=== PATIENT | male | born 1985 | race Caucasian/White ===

== ENCOUNTER → 2017-10-29 08:06 | Outpatient (CLI) | payer OTHER, SELFPAY ==
--- NOTE | 2017-10-29 | DI.MRI.S_ITS ---
PROCEDURE: MR SHOULDER RT W CON INDICATIONS: PAIN IN RIGHT SHOULDER TECHNIQUE: After the administration of 12 mL of dilute intra-articular Gadolinium contrast, oblique coronal T1 and T2 spin echo with fat saturation, oblique sagittal T1 spin echo with and without fat saturation, oblique sagittal T2 fast spin echo with fat saturation, axial T1 spin echo with fat saturation through the shoulder. COMPARISON: None. FINDINGS: Image quality: Excellent. Rotator cuff: Partial-thickness articular sided tear of the supraspinatus tendon involving the critical zone and footprint which appears high-grade, greater than 50% of tendon thickness. This measures approximately 6 cm in AP dimension on sagittal image 6 series 8. No leakage of injected gadolinium contrast material into the subacromial/subdeltoid bursa to suggest full-thickness defect. The infraspinatus and teres minor tendons appear intact. The subscapularis tendon appears intact. No atrophy of the rotator cuff musculature. Bones and bursae: No bone marrow contusions or fractures. No acromioclavicular joint degeneration. The acromion demonstrates conventional anatomy, without an os acromiale. Capsule and soft tissues: There is ill-defined intrasubstance signal change and hypertrophy of the anteroinferior labrum suggestive of scarring and sequela of chronic labral tear. No definite intrasubstance gadolinium signal intensity seen. No definite adjacent chondral loss and only minimal degenerative changes in the glenoid. Incidental sub-labral foramen The long head of the biceps tendon demonstrates normal location and morphology. The rotator interval appears normal, without fibrosis. The coracohumeral ligament is of normal thickness. No intra-articular bodies. IMPRESSION: High-grade partial-thickness articular sided tear involving the supraspinatus tendon critical zone and footprint. Possible chronic sequela and scarring of remote anteroinferior labral tear. Minimal associated adjacent glenoid degenerative changes. Dictated by: Roshan Bates M.D. on 10/29/2017 at 10:12 Approved by: Roshan Bates M.D. on 10/29/2017 at 10:21
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
== END ==
PROVIDERS: Visit Provider Family Medicine
DX: M25.511 Pain in right shoulder (principal); S46.811A Strain of other muscles, fascia and tendons at shoulder and upper arm level, right arm, initial encounter
CPT/HCPCS: 23350; 73222; 77002

== ENCOUNTER 2017-12-15 07:50 | Day surgery (SDC) | payer OTHER, SELFPAY ==
[2017-12-13 12:26] VITALS: BMI 23.1
[2017-12-15] VITALS (7 sets, daily range): BP systolic 113–142; BP diastolic 16–90; PULSE 65–81; RESP 14–19; TEMP 36.2–36.7; O2SAT 95–100; BMI 23.1
--- NOTE | 2017-12-15 08:34 | PM.PREOP ---
Pre-operative Note Interval Note Pre-op Check: Yes History & Physical Reviewed by Physician and Yes Exam Performed Changes: No
[2017-12-15] MEDS: LACTATED RINGERS 1,000 ML 42 ML IV ×2 (08:40→11:02)
--- NOTE | 2017-12-15 09:17 | SUR.PREOP ---
Block start time 0906 ] . Monitoring initiated and maintained throughout procedure. Oxygen and medications given per anesthesiologist instructions. Patient remained stable throughout procedure, no adverse reactions noted. Block end time [0910].
[2017-12-15] MEDS: CEFTRIAXONE 2 GM/50 ML FROZ.PIGGY IV (09:20)
--- NOTE | 2017-12-15 10:10 | SUR.OPER ---
Lateral on padded OR bed with tomas bag positioner, head on pillow, gel axillary roll in place, bottom leg bent with gel pad under knee to foot, upper leg straight and supported with pillows. Operative arm secured in shoulder positioning suspension device. non-operative arm secured on padded arm board. Safety belt at hip, tape over blanket securing lower legs.
--- NOTE | 2017-12-15 10:31 | PM.PROC.1 ---
Procedures Date/Time Date of procedure: 12/15/17 Time of procedure: 09:00 General Procedure description: Ultrasound guided interscalene brachial plexus nerve block for post op pain control after right shoulder rotator cuff repair requested by Dr. Gutiérrez. Risks and benefits of procedure discussed with patient. ASA monitoring applied to patient. O2 given via nasal cannula. 2 mg Versed and 50 mcg fentanyl given for procedural sedation. Skin site was prepped with chlorhexidine and allowed to fully dry. Sterile gloves, mask, hat and probe cover were used to maintain sterility. 2% lidocaine and 30ga needle was used to make a small skin wheal at needle insertion site. Under ultrasound guidance, a 21ga 50mm Pajunk needle was directed into the interscalene groove (middle/anterior scalenes) near the brachial plexus. Targeted C5 nerve root. Patient reported only mild, self-resolving parasthesias. After negative aspiration, 20 mL 0.5% ropivicaine and 10mg dexamethasone were injected around brachial plexus. Patient tolerated procedure well.
--- NOTE | 2017-12-15 10:36 | P.PCN_ITS ---
Procedures Date/Time Date of procedure: 12/15/17 Time of procedure: 09:00 General Procedure description: Ultrasound guided interscalene brachial plexus nerve block for post op pain control after right shoulder rotator cuff repair requested by Dr. Gutiérrez. Risks and benefits of procedure discussed with patient. ASA monitoring applied to patient. O2 given via nasal cannula. 2 mg Versed and 50 mcg fentanyl given for procedural sedation. Skin site was prepped with chlorhexidine and allowed to fully dry. Sterile gloves, mask, hat and probe cover were used to maintain sterility. 2% lidocaine and 30ga needle was used to make a small skin wheal at needle insertion site. Under ultrasound guidance, a 21ga 50mm Pajunk needle was directed into the interscalene groove ( middle/anterior scalenes) near the brachial plexus. Targeted C5 nerve root. Patient reported only mild, self-resolving parasthesias. After negative aspiration, 20 mL 0.5% ropivicaine and 10mg dexamethasone were injected around brachial plexus. Patient tolerated procedure well.
[2017-12-15] MEDS: BUPIVACAINE 0.25% (PF) VIAL 30 ML INJ (10:56)
[2017-12-15] MEDS: SODIUM CHLORIDE IRRIG SOLUTION 3,000 ML, EPINEPHrine 1 MG IRR (10:58)
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
== END 2017-12-15 14:10 | disposition home or self-care (01) ==
PROVIDERS: Visit Provider Orthopaedic Surgery
PROC: (CPT 29827; principal; 2017-12-15 08:45)
PROC: (CPT 29805; 2017-12-15 08:45)
DX: S46.011A Strain of muscle(s) and tendon(s) of the rotator cuff of right shoulder, initial encounter (principal); M75.21 Bicipital tendinitis, right shoulder; Y93.55 Activity, bike riding; V19.3XXA Pedal cyclist (driver) (passenger) injured in unspecified nontraffic accident, initial encounter; G89.18 Other acute postprocedural pain
CPT/HCPCS: 23430; 29827; 29826; 64415; 64450; J0171; J0696; J1100; J2250; J2405; J2704; J2795; J3010

== ENCOUNTER 2020-05-26 09:04 | Emergency (ER) | payer OTHER, SELFPAY ==
[2020-05-26 09:10] VITALS: BP 137/82; PULSE 70; RESP 16; TEMP 36.8; O2SAT 100; BMI 23.1
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
[2020-05-26 10:30] VITALS: BP 149/93; PULSE 63; RESP 15; O2SAT 95
== END 2020-05-26 10:34 | disposition home or self-care (01) ==
PROVIDERS: Emergency Provider Emergency Medicine
DX: S63.502A Unspecified sprain of left wrist, initial encounter (principal); S66.912A Strain of unspecified muscle, fascia and tendon at wrist and hand level, left hand, initial encounter; V19.9XXA Pedal cyclist (driver) (passenger) injured in unspecified traffic accident, initial encounter
CPT/HCPCS: 73110; 99283

== ENCOUNTER → 2023-09-08 17:05 | Outpatient (CLI) | payer OTHER, SELFPAY ==
--- NOTE | 2023-09-08 17:08 | DI.MRI.S_ITS ---
PROCEDURE: MR ORBITS FACE NECK WO/W CON INDICATIONS: Unspecified exophthalmos TECHNIQUE: Noncontrast sagittal T1 spin echo, axial FLAIR, axial gradient echo, axial diffusion and ADC acquired through the brain. Coronal STIR, thin-slice axial T1 spin echo through the orbits. After the administration of contrast, thin-slice axial and coronal T1 spin echo with fat saturation through the orbits, axial and coronal and sagittal T1 spin echo with fat saturation through the brain. COMPARISON: None. FINDINGS: Image quality: Excellent. Orbits: There is a well-defined mass within the posterior lateral aspect of the left orbit that measures 2.6 x 2 cm in greatest axial dimension, with a craniocaudal extent of 2.3 cm. This mass demonstrates mildly heterogeneous increased T2 weighted signal. On postcontrast imaging, there is moderate heterogeneous internal enhancement. No significant surrounding inflammatory change can be seen. This mass is seen separate from the lacrimal gland, posterior and inferior to the normal appearing left lacrimal gland. Associated mass effect can be seen upon the posterior globe, which is flattened posteriorly. There is left-sided exophthalmos. Mass effect can be seen upon the intraorbital structures, with the left lateral rectus muscle flattened and displaced laterally. The optic nerves are normal in size, without abnormal signal or enhancement. The extra-ocular muscles are normal and symmetric in appearance. Lacrimal glands are normal. Optic chiasm is normal. Periorbital soft tissues appear normal. CSF spaces: Ventricles are normal in size and shape. Basal cisterns are patent. No extra-axial fluid collections. Brain: No intracranial bleeds or mass effects. No abnormal intracranial enhancement. Carpio-white matter interface is intact. Diffusion weighted images demonstrate no acute ischemic insults. Pituitary gland appears normal, without sellar or suprasellar masses. Brainstem appears normal. Normal intravascular flow voids are present. Skull and face: Calvarial marrow is normal in signal. Sinuses: Sinuses and mastoids are clear. IMPRESSION: There is a 2.6 cm left orbital mass seen, which causes mass effect, including exophthalmos. The appearance is nonspecific, although please consider an intraorbital schwannoma, lymphoma, and metastatic disease. Dictated by: Turner Enamorado M.D. on 09/08/2023 at 18:43 Approved by: Turner Enamorado M.D. on 09/08/2023 at 18:47
== END ==
PROVIDERS: Referring Provider Optometrist; Visit Provider Optometrist
DX: H05.20 Unspecified exophthalmos (principal); H44.89 Other disorders of globe
CPT/HCPCS: 70553; A9579